=== PATIENT | female | born 1985 | race Caucasian/White ===

== ENCOUNTER 2018-09-06 02:02 | Emergency (ER) | payer BC ==
[~2018-09-06] VITALS: Ht 165.1 cm; Wt 58.1 kg
--- NOTE | 2018-09-06 02:18 | NUR ---
PT BIBS. C/O "FEELING BURNING IN MY CHEST AREA, FEELING DIZZY" -SOB NOTED.AOX4. VSS. AMBULATORY.
[2018-09-06] MEDS ORDERED: MAG HYDROX/AL HYDROX/SIMETH 30 ML UDC ONE (02:56)
[2018-09-06] MEDS ORDERED: LIDOCAINE VISCOUS 2% UD 15 ML UDC ONE (02:56)
[2018-09-06] MEDS ORDERED: LIDOCAINE VISCOUS 2% UD 15 ML UDC MM ONE (03:00)
[2018-09-06] MEDS ORDERED: MAG HYDROX/AL HYDROX/SIMETH 30 ML UDC PO ONE (03:00)
[2018-09-06 04:19] VITALS: BP 116/81
== END 2018-09-06 04:20 | disposition home or self-care (01) ==
LOC: ER 02:06
DX: K21.9 Gastro-esophageal reflux disease without esophagitis (principal)

== ENCOUNTER 2023-06-02 12:18 | Emergency (ER) | payer BC ==
[~2023-06-02] VITALS: Ht 165.1 cm; Wt 59.0 kg
[2023-06-02] MEDS: IV NS 0.9% 1,000 ML BAG IV ONE (12:48)
[2023-06-02 13:11] LABS: BASOPHILS % (AUTO) 0.3 % (0.0-2.0); EOSINOPHILS % (AUTO) 0.5 % (0.0-6.0); HEMATOCRIT 41 % (33-45); HEMOGLOBIN 13.7 g/dL (11.5-14.8); LYMPHOCYTES # (AUTO) 1.7 K/uL (0.8-4.8); LYMPHOCYTES % (AUTO) 27.2 % (20.0-44.0); MEAN CORPUSCULAR HEMOGLOBIN 30 PG (26.0-33.0); MEAN CORPUSCULAR HGB CONC 33 g/dl (31.0-36.0); MEAN CORPUSCULAR VOLUME 89 fL (82-100); MONOCYTES # (AUTO) 0.3 K/uL (0.1-1.30); MONOCYTES % (AUTO) 4.4 % (2.0-12.0); NEUTROPHILS # (AUTO) 4.2 K/uL (1.8-8.9); NEUTROPHILS % (AUTO) 67.6 % (43.0-81.0); PLATELET COUNT (AUTO) 173 K/uL (150-450); RED CELL DISTRIBUTION WIDTH 12.7 % (11.5-15.0); WHITE BLOOD COUNT (AUTO) 6.3 K/uL (4.3-11.0)
[2023-06-02 13:16] LABS: APPEARANCE,URINE CLEAR (CLEAR); BILIRUBIN,URINE NEGATIVE (NEGATIVE); BLOOD, URINE TRACE-INTA Ery/uL (NEGATIVE); COLOR,URINE YELLOW (YELLOW); KETONES,URINE NEGATIVE (NEGATIVE); LEUKOCYTE ESTERASE ,URINE NEGATIVE (NEGATIVE); NITRITE, URINE NEGATIVE (NEGATIVE); PROTEIN,URINE NEGATIVE (NEGATIVE); UGLUCOSE NEGATIVE (NEGATIVE); UROBILINOGEN,URINE 0.2 EU/dL (0.2)
[2023-06-02 13:29] LABS: PREGNANCY TEST URINE QUAL NEGATIVE (NEGATIVE)
[2023-06-02 13:30] LABS: RBC,URINE 0-2 /HPF (0-2)
[2023-06-02 13:31] LABS: ADD URINE CULTURE NO; BACTERIA,URINE None seen /HPF (None Seen); WBC,URINE 0-2 /HPF (0-3); YEAST,URINE Few /HPF (None Seen)
[2023-06-02 13:44] LABS: CALCIUM, SERUM 8.7 mg/dL (8.5-10.1); CREATININE 0.9 mg/dL (0.6-1.3); POTASSIUM 3.5 mmol/L (3.5-5.1)
[2023-06-02 13:50] LABS: ALBUMIN 3.9 g/dL (3.4-5.0); BILIRUBIN,DIRECT 0.2 mg/dL (0.0-0.2); BILIRUBIN,TOTAL 0.6 mg/dL (0.2-1.0); TOTAL PROTEIN, SERUM 7.8 g/dL (6.4-8.2)
[2023-06-02 16:30] VITALS: BP 127/67; TEMP 98.2; O2SAT 100
== END 2023-06-02 16:30 | disposition home or self-care (01) ==
LOC: ER 12:25
DX: N83.201 Unspecified ovarian cyst, right side (principal); R10.31 Right lower quadrant pain; Z90.710 Acquired absence of both cervix and uterus
CPT/HCPCS: 99284; 74176; 96360; 76856; 85025; 80048; 83690; 80076; 84703; 81001; 36415; J7030